=== PATIENT | male | born 1990 | race African-American/Black ===

== ENCOUNTER 2025-03-13 16:41 | Emergency (ER) | payer BC, OTHER ==
[~2025-03-13] VITALS: Ht 188 cm; Wt 85.0 kg
[2025-03-13 17:22] VITALS: PULSE 67; RESP 20; O2SAT 98
[2025-03-13] MEDS ORDERED: KETAMINE 50mg/ML 10ml Vial (500mg/10ml) IV ONE ×2 (18:15)
[2025-03-13] MEDS: KETAMINE 50mg/ML 10ml Vial (500mg/10ml) IV ONE ×3 (18:15→19:03)
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
--- NOTE | 2025-03-13 18:39 | DVH ---
CLINICAL INDICATION: pain after fall TECHNIQUE: 3 radiographic views of the left elbow were obtained. Comparison: None FINDINGS/IMPRESSION: Dislocation of the left elbow is noted with the radius and ulna displaced posteriorly. The distal humerus noted in the antecubital fossa. Fractures are not apparent on this study.
[2025-03-13] MEDS ORDERED: IBUP-1455 PO (19:15)
--- NOTE | 2025-03-13 19:24 | DVH ---
CLINICAL INDICATION: REDUCTION TECHNIQUE: 2 radiographic views of the left elbow were obtained. Comparison: XY L ELBOW VIEW XRAY on DOS: 03/13/25 FINDINGS/IMPRESSION: Questionable joint effusion is noted. A suboptimal lateral elbow. Satisfactory bony alignment. Questionable minimally displaced fracture of the radial head.
[2025-03-13 19:32] VITALS: BP 149/104; PULSE 71; RESP 13; TEMP 98.9; O2SAT 99
== END 2025-03-13 19:39 | disposition home or self-care (01) ==
LOC: ER 16:41
DX: S53.125A Posterior dislocation of left ulnohumeral joint, initial encounter (principal); W19.XXXA Unspecified fall, initial encounter; Y93.89 Activity, other specified; Y92.89 Other specified places as the place of occurrence of the external cause; Y99.8 Other external cause status
CPT/HCPCS: 24600; 73070; 73080; 94760